=== PATIENT | female | born 1975 | race Caucasian/White ===

== ENCOUNTER 2017-03-18 07:15 | Emergency (ER) | payer OTHER ==
[~2017-03-18] VITALS: Ht 180.3 cm; Wt 119.6 kg
[~2017-03-18 07:15] MED LIST: CAMILA0.35 MG PO; ENDOCET 5-3251 EACH PO; FLEXERIL10 MG PO; IBUPROFEN800 MG PO; MOTRIN800 MG PO; PEPCID40 MG PO; PERCOCET 5/31 TABLET PO; PRENATAL TABLE1 EACH PO; PROZAC40 MG PO; TUMS500 MG PO; TYLENOL EXTRA500 MG PO; TYLENOL PM1 CAPLET PO; ZANTAC75 M1 PO
[2017-03-18 07:45] LABS: EOSINOPHIL (%) 3.7 % (0-5); EOSINOPHIL COUNT 0.3 K/uL (0-0.3); HEMATOCRIT 41.5 % (36.0-46.0); IMMATURE GRANULOCYTE (%) 0.2 % (0.0-0.7); INSTRUMENT ABS NEUTROPHIL CT 4.9 K/uL; LYMPHOCYTE COUNT 2.5 K/uL (1.0-2.8); MCH 30.2 PG (29.0-34.0); MCHC 33.7 G/DL (30.0-36.0); MCV 89.6 FL (83-99); MEAN PLAT.VOLUME 10.6 uM^3 (9.5-12.4); MONOCYTE (%) 6.3 % (3-12); MONOCYTE COUNT 0.5 K/uL (0-0.8); NEUTROPHIL (%) 59.1 % (45-76); NEUTROPHIL COUNT 4.9 K/uL (1.8-6.4); PLATELET COUNT 195 K/uL (156-360); RBC DIS.WIDTH-CV 12.8 % (11.8-14.6); RED BLOOD COUNT 4.63 M/uL (3.80-5.20); WHITE BLOOD COUNT 8.3 K/uL (4.1-10.2)
[2017-03-18 07:56] LABS: CHLORIDE 111 mEq/L (99-109); POTASSIUM 4.8 mEq/L (3.7-5.4); SODIUM 140 mEq/L (136-147)
[2017-03-18 07:58] LABS: GLUCOSE 120 mg/dL (70-99)
[2017-03-18 07:59] LABS: ANION GAP 8 MEQ/L (2-14)
[2017-03-18 08:00] LABS: TOTAL BILIRUBIN 0.3 mg/dL (0.0-1.0)
[2017-03-18 08:01] LABS: ALKALINE PHOSPHATASE 73 IU/L (3-129)
[2017-03-18 08:02] LABS: GFR ESTIMATE (CALCULATED) > 59 mL/min/
[2017-03-18 08:03] LABS: UREA NITROGEN (BUN) 15 mg/dL (9-23)
[2017-03-18 08:05] LABS: LIPASE 22 U/L (1.0-51.0)
[2017-03-18 08:12] LABS: QUANTITATIVE HCG < 4.0 MIU/ML
[2017-03-18 09:48] LABS: ADD MIUA? NO; BILIRUBIN NEGATIVE; BLOOD NEGATIVE; COLOR STRAW ((YELLOW)); GLUCOSE (STRIP) NEGATIVE; KETONES NEGATIVE; LEUKOCYTES NEGATIVE; NITRITE NEGATIVE; PROTEIN (STRIP) NEGATIVE; SPECIFIC GRAVITY 1.026 (1.000-1.030); UCUL ADDED? NO; UROBILINOGEN 0.2 MG/DL (0.2-1.0)
[2017-03-18] MEDS ORDERED: PERCOCET 5/31 TABLET PO (10:23)
[2017-03-18 10:33] VITALS: BP 120/76
== END 2017-03-18 10:36 | disposition home or self-care (01) ==
LOC: EME 07:15
PROVIDERS: Emergency Medicine
DX: R10.31 Right lower quadrant pain (principal); M79.7 Fibromyalgia; K21.9 Gastro-esophageal reflux disease without esophagitis; J45.909 Unspecified asthma, uncomplicated; F32.9 Major depressive disorder, single episode, unspecified; Z87.891 Personal history of nicotine dependence
CPT/HCPCS: 74177; 80053; 81003; 83690; 84702; 85025; 99281; 99285; J2270; J2405; J7030

== ENCOUNTER 2017-06-12 13:27 | Emergency (ER) | payer OTHER ==
[~2017-06-12] VITALS: Ht 180.3 cm; Wt 122.7 kg
[2017-06-12 15:01] LABS: HEMATOCRIT 44.1 % (36.0-46.0); HEMOGLOBIN 14.7 G/DL (11.9-15.5); MCH 30.1 PG (29.0-34.0); MCHC 33.3 G/DL (30.0-36.0); MCV 90.4 FL (83-99); PLATELET COUNT 203 K/uL (156-360); RBC DIS.WIDTH-CV 12.4 % (11.8-14.6); RBC DIS.WIDTH-SD 40.3 % (39-53); RED BLOOD COUNT 4.88 M/uL (3.80-5.20); WHITE BLOOD COUNT 7.6 K/uL (4.1-10.2)
[2017-06-12 15:12] LABS: CHLORIDE 107 mEq/L (99-109); POTASSIUM 4.1 mEq/L (3.7-5.4); SODIUM 140 mEq/L (136-147)
[2017-06-12 15:13] LABS: GLUCOSE 93 mg/dL (70-99)
[2017-06-12 15:17] LABS: CREATININE 0.8 mg/dL (0.6-1.3); GFR ESTIMATE (CALCULATED) > 59 mL/min/
[2017-06-12 15:18] LABS: UREA NITROGEN (BUN) 11 mg/dL (9-23)
[2017-06-12 15:51] LABS: TROP-I INTERPRETATION NEGATIVE; TROPONIN-I < 0.01 ng/mL (0.0-0.30)
[2017-06-12 16:19] LABS: ALBUMIN 4.6 g/dL (3.2-4.8)
[2017-06-12 16:22] LABS: TOTAL PROTEIN 7.4 g/dL (6.4-8.3)
[2017-06-12 16:24] LABS: TOTAL BILIRUBIN 0.6 mg/dL (0.0-1.0)
[2017-06-12 16:25] LABS: ALKALINE PHOSPHATASE 80 IU/L (3-129)
[2017-06-12 16:27] LABS: AST (GOT) 16 IU/L (2-34); DIRECT BILIRUBIN 0.2 mg/dL (0.0-0.3)
[2017-06-12 16:28] LABS: ALT (GPT) 15 IU/L (3-49); LIPASE 10 U/L (1.0-51.0)
[2017-06-12 16:34] LABS: QUANTITATIVE HCG < 4.0 MIU/ML
[2017-06-12] MEDS ORDERED: MEDROL DOSEPAK4 MG PO (17:36)
[2017-06-12] MEDS ORDERED: VALIUM5 MG PO (17:36)
[2017-06-12 18:10] VITALS: BP 147/94
== END 2017-06-12 18:13 | disposition home or self-care (01) ==
LOC: EME 13:27
DX: R07.9 Chest pain, unspecified (principal); R03.0 Elevated blood-pressure reading, without diagnosis of hypertension; K21.9 Gastro-esophageal reflux disease without esophagitis; J45.909 Unspecified asthma, uncomplicated; M79.7 Fibromyalgia; F32.9 Major depressive disorder, single episode, unspecified; Z87.891 Personal history of nicotine dependence; Z82.3 Family history of stroke
CPT/HCPCS: 71046; 71275; 80048; 80076; 83690; 84484; 84702; 85027; 93005; 99281; 99285; J1885; J2060; J2765; J7030